=== PATIENT | female | born 1990 | race Caucasian/White ===

== ENCOUNTER 2019-05-14 04:22 | Inpatient (IN) | payer BC, SELFPAY ==
[2019-05-14] VITALS (91 sets, daily range): BP systolic 91–134; BP diastolic 42–117; PULSE 76–151; RESP 12–16; TEMP 36.4–37.1; O2SAT 96–100; BMI 23.5
--- NOTE | 2019-05-14 09:00 | WPDOBADMIT ---
Obstetrics - Admit Note Admission Note: record reviewed. Additions to the history and/or subsequent changes in the physical findings follow. 29 y/o at 38 5/7 weeks here withi contractiosn. GBS neg. AVSS NST reactive TOCO: contractions every 2-3 min ABD soft, nontender, gravid, vertex EXT nontender Cervix 5/80/-2. AROM with clear fluid. A: IUP at term with labor. P: Anticipate .
[2019-05-14] MEDS: LACTATED RINGERS 1,000 ML 125 ML IV CONT ×2 (09:31→10:11)
[2019-05-14 09:43] LABS: Basophils Absolute Auto 0.1 K/mm3 (0.0-0.1); Basophils Percent Auto 0.5 % (0.2-1.2); Eosinophils Percent Auto 0.2 % (0-4.4); Hematocrit 37.9 % (37.0-47.0); Hemoglobin 12.3 g/dL (12.0-15.0); Immature Granulocyte Absolute 0.18 K/mm3 (0.00-0.031); Immature Granulocyte Percent A 1.5 % (0-0.5); Lymphocytes Absolute Auto 1.85 K/mm3 (0.9-3.2); Lymphocytes Percent Auto 15.5 % (18.3-44.2); Mean Corpuscular HGB Conc 32.5 g/dl (32-36); Mean Corpuscular Hemoglobin 29.3 pg (26-34); Mean Corpuscular Volume 90.2 fl (80-100); Mean Platelet Volume 9.7 fl (7.4-10.4); Monocytes Absolute Auto 0.9 K/mm3 (0.1-0.6); Monocytes Percent Auto 7.5 % (2.6-8.5); Neutrophils Percent Auto 74.8 % (45.5-73.1); Platelet Count Result 178 k/mm3 (150-375); Red Cell Distribution Width 14.1 % (11.5-14.5)
--- NOTE | 2019-05-14 09:44 | LDADM ---
This patient, Gage Sandy, was admitted to Labor/Delivery/Recovery 107 on 05/14/19 at 04:22. Plans for labor, pain management and were discussed with patient. Patient/family oriented to hospital policies and general routines including ID bracelet, bed and alarms, visiting hours, pain management, procedures, bathroom and other care routines, personal items, smoking policy, room service/diet and guest tray routines, infant security routines, and visiting hours. Patient/Family are encouraged to report perceived risks to care and to ask questions if they do not understand what they are told or what they should do. See OBIX for further documentation.
--- NOTE | 2019-05-14 10:30 | WPDANESEPP ---
Anes - Eval Pre Procedure Procedure: labor epidural Date/Time: 05/14/19 10:30 Surgeon: nichole Pre Op Diagnosis: labor Patient Data Age: 29 Gender: F Height: 1.68 m Weight: 66 kg Last Vital Signs Pulse 87 05/14/19 10:15 BP 126/76 05/14/19 10:15 Pulse Ox 100 05/14/19 10:29 Allergies Allergy/AdvReac Type Severity Reaction Status Date / Time No Known Allergies Allergy Unverified 05/27/17 10:53 Home Medications Medication Instructions Recorded Confirmed Type PNV cmb#95-ferrous fumarate-FA 1 tablet PO DAILY 04/26/19 04/26/19 History [] Laboratory Tests 05/14/19 05/14/19 09:24 09:24 WBC 12.0 K/mm3 H K/mm3 (4.5-10.0) RBC 4.20 M/mm3 M/mm3 (4.2-5.4) Hgb 12.3 g/dL g/dL (12.0-15.0) Hct 37.9 % % (37.0-47.0) MCV 90.2 fl fl (80-100) MCH 29.3 pg pg (26-34) MCHC 32.5 g/dl g/dl (32-36) RDW 14.1 % % (11.5-14.5) Plt Count 178 k/mm3 k/mm3 (150-375) MPV 9.7 fl fl (7.4-10.4) Immature Gran % (Auto) 1.5 % H % (0-0.5) Neut % (Auto) 74.8 % H % (45.5-73.1) Lymph % (Auto) 15.5 % L % (18.3-44.2) [place] % (Auto) 7.5 % % (2.6-8.5) Eos % (Auto) 0.2 % % (0-4.4) Baso % (Auto) 0.5 % % (0.2-1.2) Lymph # (Auto) 1.85 K/mm3 K/mm3 (0.9-3.2) Barrow # (Auto) 0.9 K/mm3 H K/mm3 (0.1-0.6) Eos # (Auto) 0.0 K/mm3 K/mm3 (0-0.3) Baso # (Auto) 0.1 K/mm3 K/mm3 (0.0-0.1) Abs Immat Gran (auto) 0.18 K/mm3 H K/mm3 (0.00-0.031) Absolute Neuts (auto) 9.0 K/mm3 H K/mm3 (1.3-6.7) Absolute Nucleated RBC 0.0 K/mm3 K/mm3 (0.0-0.012) Nucleated RBC % 0.0 % % (0.0-0.2) RPR Pending Patient hx anesthesia problems: none Family hx anesthesia problems: none [facility] Family History Family History (Updated 04/26/19 @ 13:51 by Angeles Willis RN) Other No significant past medical history Social History Social History Smoking status: Never smoker Substance use: never Gender identity (if verbalized by the patient): Female Spiritual care concerns: No Exam Day of Procedure 05/14/19 10:30
[2019-05-14] MEDS: ONDANSETRON INJ 4 MG/2 ML VIAL IV PUSH (13:46)
--- NOTE | 2019-05-14 18:35 | PC.NURSE ---
Patient transferred to post room #281 via wheelchair. Support person present. Oriented to unit, room, information board, rooming in, admission packet and security measures. Patient verbalizes understanding.
--- NOTE | 2019-05-14 19:40 | P.PCNOB_ITS ---
OB - Delivery Note Procedure Delivery date: 05/14/19 Procedure: Delivery monitor: external FHT and external uterine Route of delivery: Laceration description: Perineal - 2nd Degree Delivery repair: vicryl (3-0) Specimen: Yes (Cord blood) Estimated blood loss (mL): 630 Anesthesia type: Epidural Disposition: PACU Complications: None Narrative: Kaonya-tdhfu-gziw-old 4 para 2011 at 38 5/7 weeks gestation who presented to the hospital with complaint of contractions. Labor was diagnosed. Amniotomy was performed with return of clear fluid. She received an epidural for pain control. Her labor progressed and her cervix dilated completely. She pushed with good effort and delivered the infant's head to the perineum, followed by the body. The nose and mouth were bulb suctioned. After a delay, the cord was clamped and cut. The infant was handed off the field. Cord blood was collected. The placenta delivered spontaneously and was grossly normal in appearance. The usual 3 vessel cord was noted. A second degree midline perineal laceration was sustained. This was reapproximated using 3 0 Vicryl in the usual layered fashion. Excellent hemostasis resulted as did excellent reapproximation of the normal anatomy. Needle and instrument counts were correct. The patient was taken to recovery room in stable condition. The went to the nursery in stable condition. I was present and scrubbed for the entire delivery. Jackson Baby Date of : 05/14/19 Time of : 13:34 Weeks of gestation at delivery: 38 Infant gender: Male Weight (pounds): 7 Weight (ounces): 7 presentation: vertex Placenta delivery description: Spontaneous and Normal Configuration cord vessel description: 3 Vessels score one minute: 8 score five minutes: 9
--- NOTE | 2019-05-14 19:43 | PM.DS ---
DS: Diagnosis Admitting Diagnosis Admitting Diagnosis: IUP at term labor Discharge Diagnosis (1) (normal spontaneous vaginal delivery): Code(s): O80 - Encounter for full-term uncomplicated delivery Status: Acute DS: Summary Time Spent with Patient Time attestation: Total time spent providing and/or coordinating discharge services: DS: Data Data Completed and Pending Labs on day of discharge: Labs from last 24 hours 05/14/19 05/14/19 05/14/19 09:24 09:24 09:24 WBC 12.0 H RBC 4.20 Hgb 12.3 Hct 37.9 MCV 90.2 MCH 29.3 MCHC 32.5 RDW 14.1 Plt Count 178 MPV 9.7 Immature Gran % (Auto) 1.5 H Neut % (Auto) 74.8 H Lymph % (Auto) 15.5 L Bracken % (Auto) 7.5 Eos % (Auto) 0.2 Baso % (Auto) 0.5 Lymph # (Auto) 1.85 [place]acken # (Auto) 0.9 H Eos # (Auto) 0.0 Baso # (Auto) 0.1 Abs Immat Gran (auto) 0.18 H Absolute Neuts (auto) 9.0 H Absolute Nucleated RBC 0.0 Nucleated RBC % 0.0 RPR Pending Blood Type A Positive Antibody Screen Negative Discharge Plan Discharge Attending physician on discharge: Zane Wetzel Discharging Clinician: Zane Wetzel Patient Disposition: Home, Self-Care Activity: pelvic rest Diet: regular Discharge Instructions: Call or return if temperature above 100.4? F, increased abdominal pain, increased vaginal bleeding or any new problems. Stand Alone Forms: General Discharge Information Follow-up/Referrals: Zane Wetzel MD [Physician] - (6 weeks) Discharge Medications: New ferrous sulfate 325 mg (65 mg iron) tablet 325 mg PO DAILY Qty: 30 RF: 0 No Action PNV cmb#95-ferrous fumarate-FA [] 28 mg iron- 800 mcg Tablet 1 tablet PO DAILY RF: 0 Date of admission: 05/14/19 04:22 Primary Care Provider: Floridalma,Nilam Admitting Provider: Zane Wetzel Attending physician on admission: Zane Wetzel
[2019-05-14] MEDS: IBUPROFEN 600 MG TABLET PO (21:04)
[2019-05-15] MEDS: IBUPROFEN 600 MG TABLET PO ×2 (04:57→11:07)
[2019-05-15 05:36] LABS: Hematocrit 27.4 % (37.0-47.0); Hemoglobin 8.7 g/dL (12.0-15.0)
[2019-05-15 07:58] LABS: Rapid Plasma Reagin Non-Reactive (NonReactive)
[2019-05-15] MEDS: MULTIVIT/MIN/PREN/FOL AC/IRON TABLET 1 TAB PO (08:23)
[2019-05-15] MEDS: DOCUSATE SODIUM 100 MG CAPSULE PO (08:23)
[2019-05-15] MEDS: POLYSACCHARIDE IRON COMPLEX 150 MG CAPSULE PO (08:23)
[2019-05-15 08:45] VITALS: BP 128/72; PULSE 101; RESP 16; TEMP 37.2; O2SAT 99
--- NOTE | 2019-05-15 13:34 | PM.OBPNVD ---
OB - PN: Subj Subjective Date/time seen: 05/15/19 13:34 Narrative: Pain OK. Would like circumcision for son. Wants to go home today. OB - PN: Obj Data Labs CBC & Chem 7: 05/15/19 05:16 Labs: Laboratory Results - last 24 hr 05/14/19 05/15/19 09:24 05:16 Hgb 8.7 L D Hct 27.4 L RPR Non-reactive OB - PN A/P Plan Comments: A: PPD#1, doing well. P: Reviewed circumcision. Home today. F/u 6 weeks. Exam Narrative: Exam Narrative: AVSS ABD soft, nontender, fundus firm EXT nontender
--- NOTE | 2019-05-15 14:19 | PC.NURSE ---
Patient was given the opportunity to view the discharge video Mother & Baby Care, The First Two Weeks and to ask questions. Patient declined viewing the video and has been given the mother/baby guide for home reference. 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
[2019-05-17 11:21] VITALS: BP 119/80; PULSE 93; RESP 16; TEMP 37
== END 2019-05-15 16:06 | disposition home or self-care (01) | DRG 807 ==
LOC: ANHLDR 16:21 → ANHOB2 17:40
PROVIDERS: Admitting Provider Obstetrics & Gynecology; PCP Physician Assistant; Visit Provider Obstetrics & Gynecology
DX: O70.1 Second degree perineal laceration during delivery (principal); Z37.0 Single live birth; Z3A.38 38 weeks gestation of pregnancy; Z23 Encounter for immunization
CPT/HCPCS: 36415; 85014; 85018; 85025; 86592; 86850; 86900; 86901; A9270; J2405; J2590; J2795; J7120

== ENCOUNTER → 2020-02-11 08:51 | Outpatient (REF) | payer BC, SELFPAY | LOC: ANHLAB 08:51 | PROVIDERS: PCP Physician Assistant; Visit Provider Nurse Practitioner | DX: D49.2 Neoplasm of unspecified behavior of bone, soft tissue, and skin (principal) | CPT/HCPCS: 88305 ==

== ENCOUNTER 2021-05-27 20:25 | Emergency (ER) | payer BC, SELFPAY ==
[2021-05-27 20:36] VITALS: BP 117/50; PULSE 95; RESP 16; TEMP 36.6; O2SAT 99
--- NOTE | 2021-05-27 20:51 | ED.NAVMDI ---
HPI - Nausea/Vomiting/Diarrhea General Chief complaint: Nausea/Vomiting/Diarrhea Stated complaint: N/V RUQ pain, 10wks preg Time Seen by Provider: 05/27/21 20:42 Source: patient Mode of arrival: ambulatory Limitations: no limitations History of Present Illness HPI Narrative: Pt is a 31 y/o female, , 10 weeks , presents to ED via POV with acute onset RUQ abdominal pain, nausea and vomiting, approximately 3 hours after eating [employer] for lunch. She denies associated fevers, chills, hematemesis, hematochezia, melena, diarrhea or constipation. She denies vaginal bleeding or discharge and she has no urinary symptoms. She retains her gallbladder MD elicited complaint: nausea and vomiting Associated nausea: Yes Associated abdominal pain: Yes Location of pain: RUQ Pain consistency: constant Severity: moderate Quality: cramping, sharp and constant Exacerbating factors: other (palpation) Relieving factors: none and other (she has taken Zofran 8 mg without relief) Context: other (entire family had a gastroenteritis two weeks ago, her symptoms resolved completely until today) Related Data Home Medications Medication Instructions Recorded Confirmed ondansetron 4 mg PO Q4-6H PRN 05/27/21 05/27/21 sertraline 50 mg PO DAILY 05/27/21 05/27/21 Allergies Allergy/AdvReac Type Severity Reaction Status Date / Time No Known Allergies Allergy Verified 05/27/21 20:39 Review of Systems Review of Systems: refer to HPI Gastrointestinal: Gastrointestinal: Reports as per HPI [facility] Family History Family History Other No significant past medical history Social History Social History Smoking status: Never smoker Substance use: never Gender identity (if verbalized by the patient): Female Spiritual care concerns: No Exam Const: General: cooperative, healthy appearing, alert, awake and Physically active Orientation/consciousness: oriented to person, oriented to place and oriented to time Limitations: no limitations HENMT: Head: normal to inspection Ears: hearing grossly normal bilaterally General nose exam: Normal external nose present Face and sinus: normal facial exam Mouth: Yes Normal oral and palatal mucosa present Eyes: General: appearance normal, both eyes and all related structures Visual Conway: normal visual conway by confrontation Alignment and Position: alignment normal Neck: Neck: normal visual inspection Chest: Chest palpation & inspection: normal inspection of the chest and normal palpation of entire chest wall Resp: Effort & Inspection: normal respiratory effort and able to speak in complete sentences Auscultation: clear to auscultation bilaterally Cardio: Jugular venous distension: no JVD Palpation: normal PMI Rate: regular rate Rhythm: regular rhythm Heart sounds: S1 normal heart sound present and S2 normal heart sound present Peripheral pulses: Peripheral pulses 2+ throughout GI: Inspection: normal to inspection (gravid appearance) GI Palp: Yes abdominal tenderness (RUQ, + Blanco's sign, no CVA TTP, no rebound, no palpable mass or HSM) Percussion: Yes normal to percussion Auscultation: normal bowel sounds Rectal Exam: deferred : General: Yes no CVA tenderness Skin: General skin exam: normal color Lesions: no lesions Rashes: no rashes Neuro: General: oriented to person, oriented to place, oriented to time and patient oriented x3 Cognition (Neuro): normal cognition Motor exam (neuro): 5/5 motor strength present throughout Sensory Exam: normal sensation Course Course Emergency Course: Pt's nausea has improved until just prior to discharge, nausea started to return. pain is persistent but improved since onset earlier today. A bedside US is completed by Dr Martino, as US is not available this time of night through the radiology department. No gall stones noted, gallbladde
[2021-05-27] MEDS: diphenhydrAMINE HCl INJ 50 MG/ML VIAL 25 MG IV PUSH (21:02)
[2021-05-27] MEDS: METOCLOPRAMIDE HCL INJ 10 MG/2 ML VIAL IV PUSH (21:02)
[2021-05-27] MEDS: LACTATED RINGERS 1,000 ML 1000 ML IV CONT (21:03)
[2021-05-27 21:09] LABS: Basophils Percent Auto 0.2 % (0.2-1.2); Hematocrit 42.5 % (37.0-47.0); Hemoglobin 14.7 g/dL (12.0-15.0); Immature Granulocyte Absolute 0.08 K/mm3 (0.00-0.031); Immature Granulocyte Percent A 0.4 % (0-0.5); Lymphocytes Absolute Auto 0.93 K/mm3 (0.9-3.2); Lymphocytes Percent Auto 5.2 % (18.3-44.2); Mean Corpuscular HGB Conc 34.6 g/dl (32-36); Mean Corpuscular Volume 92.6 fl (80-100); Mean Platelet Volume 9.6 fl (7.4-10.4); Monocytes Absolute Auto 0.9 K/mm3 (0.1-0.6); Monocytes Percent Auto 4.9 % (2.6-8.5); Neutrophils Absolute Auto 16.1 K/mm3 (1.3-6.7); Neutrophils Percent Auto 89.3 % (45.5-73.1); Platelet Count Result 219 k/mm3 (150-375); Red Blood Count 4.59 M/mm3 (4.2-5.4); Red Cell Distribution Width 13.5 % (11.5-14.5); White Blood Count 18.1 K/mm3 (4.5-10.0)
[2021-05-27 21:17] LABS: Add Urine Microscopic? YES; Appearance Urine Clear (Clear); Bacteria Urine Trace /hpf; Bilirubin Urine Negative (Negative); Blood Urine Negative (Negative); Color Urine Yellow (Yellow); Glucose Urine UA Negative (Negative); Ketones Urine 1+ mg/dL (Negative); Leukocyte Esterase Ur Negative LEU/UL (Negative); Mucus Urine Rare /lpf; Nitrate Urine Negative (Negative); Protein Urine Negative (Negative); RBC Urine 0-2 /hpf (0-2); Specific Grav Ur 1.018 (1.001-1.035); Squamous Epithelial Cell Urine Few /hpf (Few); Urobilinogen Urine Negative mg/dL (<2.0)
[2021-05-27 21:27] LABS: Alanine Aminotransferase 14 U/L (4-35); Albumin Level 4.2 g/dL (3.5-5.1); Alkaline Phosphatase 95 U/L (38-126); Anion Gap 9 mmol/L (8-16); Aspartate Amino Transferase 25 U/L (14-36); Bilirubin,Total 0.5 mg/dL (0.2-1.3); Blood Urea Nitrogen 12 mg/dL (7-17); Calcium 8.8 mg/dL (8.4-10.2); Carbon Dioxide 21 mmol/L (22-30); Chloride 106 mmol/L (98-107); Estimated CRCL calculation 144 ml/min; Estimated Glomerular Filt Rate > 60; Glucose 108 mg/dL (65-110); Lipase 98 U/L (23-300); Sodium 136 mmol/L (137-145)
[2021-05-27] MEDS: METOCLOPRAMIDE HCL 10 MG TABLET PO (23:14)
[2021-05-27 23:16] VITALS: BP 127/85; PULSE 95; RESP 20; O2SAT 98
== END 2021-05-27 23:17 | disposition home or self-care (01) ==
PROVIDERS: Emergency Provider Nurse Practitioner Family; PCP Physician Assistant
DX: O26.891 Other specified pregnancy related conditions, first trimester (principal); R10.11 Right upper quadrant pain; D72.829 Elevated white blood cell count, unspecified; O21.9 Vomiting of pregnancy, unspecified; Z3A.10 10 weeks gestation of pregnancy
CPT/HCPCS: 36415; 80053; 81001; 83690; 84702; 85025; 96374; 96375; 99284; A9270; J1200; J2765; J7120

== ENCOUNTER 2021-06-08 07:59 | Outpatient (CLI) | payer BC, SELFPAY ==
--- NOTE | ~2021-06-08 | US_ITS ---
EXAMINATION: US right upper quadrant DATE: 06/08/2021 08:22 INDICATION: Right upper quadrant abdominal pain. First trimester of . TECHNIQUE: Multiple grayscale and Doppler ultrasound images of the abdomen were obtained. COMPARISON: Ultrasound 12/13/2017 FINDINGS: The visualized portions of the head and body of the pancreas are normal. The liver is roselia l without focal lesion. There is normal flow in main portal vein. The gallbladder is normal in size. No gallstones or gallbladder wall thickening. There was no sonographic Blanco sign. The common duct i s normal and measures 3 mm. IMPRESSION: 1. Normal right upper quadrant ultrasound. Reviewed, dictated and finalized at location A. NG GUIDE
== END 2021-06-08 08:00 | disposition home or self-care (01) ==
LOC: ANHIMG 08:02
PROVIDERS: PCP Physician Assistant; Visit Provider Obstetrics & Gynecology
DX: R10.11 Right upper quadrant pain (principal); O26.891 Other specified pregnancy related conditions, first trimester
CPT/HCPCS: 76705

== ENCOUNTER 2022-11-27 17:27 | Emergency (ER) | payer BC, SELFPAY ==
[2022-11-27 17:30] VITALS: BP 131/89; PULSE 96; RESP 15; TEMP 36.8; O2SAT 100
--- NOTE | 2022-11-27 17:53 | ED.GENADULT ---
[facility] - General Adult General Chief complaint: Epistaxis Stated complaint: epistaxis Time Seen by Provider: 11/27/22 17:42 Source: patient Mode of arrival: ambulatory Limitations: no limitations History of Present Illness HPI narrative: This is a 32-year-old female who presents to the ED with chief complaint of epistaxis that began 30 minutes prior to arrival. She states it lasted for 30 minutes and she came to the ER for further evaluation. Denies any history of nosebleed problems. Denies any easy bleeding/bruising or bleeding problems in general. She states this seemed to happen spontaneously today. She does note that she has been getting over COVID over the last week. States that she feels she has had to spit it up. Denies any further complaint. During the interview patient states that the epistaxis seems to have completely resolved. Related Data Home Medications Medication Instructions Recorded Confirmed sertraline 50 mg tablet 50 mg PO DAILY 05/27/21 05/27/21 Allergies Allergy/AdvReac Type Severity Reaction Status Date / Time No Known Allergies Allergy Verified 11/16/22 15:34 Review of Systems Review of Systems: All systems as dictated in [facility] Past Medical History Medical History (Updated 11/27/22 @ 18:02 by Barron Johnson PA-C) Surgery, elective episiotomy repair Family History Family History (Updated 11/16/22 @ 15:37 by Rachel Moore MA) Other Diabetes mellitus Hypertension Social History Social History (Updated 11/16/22 @ 15:38 by Rachel Moore MA) Smoking status: Never smoker Alcohol intake: current Substance use: never Substance use type: does not use Living arrangements: with family Occupation/Education: occupation Gender identity (if verbalized by the patient): Female Sexual Orientation (if Verbalized by the Patient): Straight or Heterosexual Spiritual care concerns: No Exam Narrative: GENERAL: Well-appearing, well-nourished, and in no acute distress. HEAD: Normocephalic, atraumatic. EYES: PERRLA and EOMI. ENT: Scant amount of bright red blood noted in the posterior pharynx. I do not visualize any active bleeding in either nare. Also do not visualize the source of the previous bleed. Mucous membranes moist. Oropharynx without tonsillar hypertrophy exudate or other lesions. NECK: Supple. No adenopathy or masses. CHEST: No respiratory distress. Clear to auscultation. No wheezes rales or rhonchi HEART: Regular rate and rhythm. No murmur heard. Normal peripheral pulses. ABDOMEN: Soft, nontender, nondistended, normal active bowel sounds. MSK: Normal range of motion. No edema. SKIN: Warm, dry, no rash. NEURO: Alert and oriented x3. No focal deficits. PSYCH: Normal mood and affect. Course Vital Signs Vital signs: Vital Signs Temperature 98.3 F 11/27/22 17:30 Pulse Rate 96 11/27/22 17:30 Respiratory Rate 15 11/27/22 17:30 Blood Pressure 131/89 11/27/22 17:30 Pulse Oximetry 100 11/27/22 17:30 Oxygen Delivery Room Air 11/27/22 17:30 Temperature 98.3 F 11/27/22 17:30 Pulse Rate 96 11/27/22 17:30 Respiratory Rate 15 11/27/22 17:30 Blood Pressure 131/89 11/27/22 17:30 Pulse Oximetry 100 11/27/22 17:30 Oxygen Delivery Room Air 11/27/22 17:30 Medical Decision Making MDM Narrative Medical decision making narrative: This is a 32-year-old female who presents to the ED with chief complaint of epistaxis that started 30 minutes prior to arrival. Vitals are normal. Exam does not reveal any active bleeding or source of bleeding. She reports that the bleeding was in the right nare but it is completely resolved as I interview her. She initially used the nose clamp given by triage. She was observed in the department for an hour with no continued bleeding. Stable for discharge home. Bleeding was likely anterior. She has recent viral illness with sinusitis which may be contributing to her noseble
== END 2022-11-27 19:02 | disposition home or self-care (01) ==
PROVIDERS: Emergency Provider Physician Assistant; PCP Physician Assistant
DX: R04.0 Epistaxis (principal); Z79.899 Other long term (current) drug therapy
CPT/HCPCS: 99282

== ENCOUNTER 2023-08-04 03:44 | Day surgery (SDC) | payer OTHER, SELFPAY ==
[2023-07-26 14:42] VITALS: BMI 20.1
--- NOTE | 2023-07-26 14:45 | PC.NURSE ---
Report to the Outpatient Waiting Room, entrance under the green pavilion located off [facility], at time 1230 on date 08/04/23. Planned Procedure Time: 1430. Time changes happen often and if your time is changed the preop area will call you the afternoon before. - You and your visitor will be asked to self-screen and do not enter if you have any COVID symptoms. - A mask is optional within the hospital at this time. Patients may have clear liquids (water, carbonated beverages, clear teas, apple juice) until 3 hours prior to surgery with a maximum of 20 ounces. - No food from midnight until time of surgery Take the following medications with a SIP of water the morning of surgery: SERTRALINE DO NOT STOP ANY OF YOUR OTHER PRESCRIPTION MEDICATIONS PRIOR TO SURGERY ?EXCEPT THE FOLLOWING Medications to discontinue per physician: VITAMIN Date to take last dose: 07/31/23 Please no make-up, nail ecuadorean, hairspray, perfume, deodorant, or body powder the day of surgery. No jewelry (including any body piercings) or valuables the day of surgery, leave them at home. Please take a shower or bath the night before, or the morning of, surgery with an antibacterial soap. Wear comfortable, loose fitting clothing. - Jewelry must be removed prior to entering the operating room. Rings and piercings that are not removed may be cut off. - The hospital will not accept responsibility for valuables. - Please leave all valuables, including medications, at home the day of surgery. If you are going home after surgery, a licensed minibus driver must drive you home. - NO public transportation without another adult if you receive anesthesia. - We recommend that an adult stay with you for 24 hours following discharge. - We also recommend that you do not drive, make important decision, drink alcoholic beverages, or take any drugs that were not prescribed by your health care provider for at least 24 hours after your discharge time. Follow any additional instructions given to you from your surgeon. If you or anyone in your household have experienced Covid symptoms in the past week, please notify your surgeon or the nurse liaison at the phone number below for possible testing. Telephone instructions given to PT - DEREJE and asked if any additional questions and then verbalized understanding. Patient advised to call surgeon office or pre surgery nurse liaison [phone] if any additional questions.
[2023-08-04] VITALS (7 sets, daily range): BP systolic 101–127; BP diastolic 59–80; PULSE 71–90; RESP 12–20; TEMP 36.1–37.6; O2SAT 100
--- NOTE | 2023-08-04 12:51 | SUR.PREOP ---
DR MOORE NOTIFIED OF PATIENT LOW HEART RATE AND METOPROLOL TAKEN THIS AM
[2023-08-04] MEDS: LACTATED RINGERS 1,000 ML 30 ML IV CONT ×2 (13:17→17:16)
--- NOTE | 2023-08-04 13:29 | P.PNAN_ITS ---
Anes - Initial Pre Proc Eval Procedure: Operation Date: 08/04/23 14:30 Proposed Procedures p Bilateral Breast Augmentation - Craig Negrete MD Date/Time: 08/04/23 13:29 Surgeon: Craig Negrete MD Pre Op Diagnosis: Micromastia Patient Data Age: 33 Gender: F Height: 1.68 m Weight: 56.4 kg Last Vital Signs Temp 99.6 F 08/04/23 13:23 Pulse 90 08/04/23 13:23 Resp 18 08/04/23 13:23 BP 113/75 08/04/23 13:23 Pulse Ox 100 08/04/23 13:23 O2 Del Method Room Air 08/04/23 13:23 Allergies Allergy/AdvReac Type Severity Reaction Status Date / Time No Known Allergies Allergy Verified 08/04/23 12:41 Home Medications Medication Instructions Recorded Confirmed Type sertraline 50 mg tablet 50 mg PO DAILY 05/27/21 08/04/23 History multivitamin 1 tablet PO DAILY 07/26/23 08/04/23 History Patient hx anesthesia problems: post op nausea/vomiting Family hx anesthesia problems: none Results Review: All pre-operative results and documents have been reviewed as part of the pre- operative evaluation. COUNT INCLUDES THE [facility] Past Medical History Medical History (Updated 11/28/22 @ 00:01 by Lainey Sabillon) Surgery, elective episiotomy repair Family History Family History (Updated 11/16/22 @ 15:37 by Rachel Moore MA) Other Diabetes mellitus Hypertension Social History Social History (Updated 11/16/22 @ 15:38 by Rachel Moore MA) Smoking status: Never smoker Alcohol intake: current Alcohol use details: 2/MONTH Substance use: never Substance use type: does not use Living arrangements: with family Occupation/Education: occupation Gender identity (if verbalized by the patient): Female Sexual Orientation (if Verbalized by the Patient): Straight or Heterosexual Spiritual care concerns: No Anes - Eval Final PreProcedure Day of Procedure 08/04/23 13:29 Patient weight: normal Heart: regular rate and rhythm Lungs: clear to auscultation Airway: Mallampati scale class II Neurological: alert and oriented Last oral intake: >/= 8 hours ASA classification: II Emergent: no Anesthetic plan: proceed Anesthesia type and monitoring: general LMA and standard monitoring Results Review: All pre-operative results and documents have been reviewed as part of the pre- operative evaluation. Informed Consent: The patient's anesthetic plan and its attendant risks and benefits were discussed with the patient/family/POA. Questions were solicited and answers provided to the satisfaction of the patient/family/POA.
--- NOTE | 2023-08-04 14:21 | SUR.PREOP ---
PATIENT NOTIFIED OF TIME DELAY
--- NOTE | 2023-08-04 15:52 | WPDHPUPDATE1 ---
History and Physical Update Update Date/Time: 08/04/23 15:52 History and Physical has been reviewed, including an updated exam of the patient. There are NO changes in the patient's condition. Risks, benefits, and alternatives have been discussed and questions answered. Patient agrees to proceed with procedure.
--- NOTE | 2023-08-04 15:52 | W.PM.PROC2 ---
Procedure Note - Detailed Date of Procedure 08/04/23 Pre-op Diagnosis Micromastia Post-op Diagnosis Same Procedure Performed Bilateral augmentation mammaplasty Surgeon Craig Negrete MD Anesthesia General Findings Bilateral Kimberly Miranda SoftTouch 385cc Right - REF# [id number] SN [id number] Left - REF# [id number] SN [id number] Description of Procedure She is here today for bilateral breast augmentation. Previously and again today the risks, benefits, alternatives were discussed in extensive detail. I wanted her to be very realistic about the risks involved as well as expectations. We discussed aftercare and what to monitor for. Made sure answered all of her questions to her satisfaction today and consent was obtained. Marked in the preoperative holding area with their verification. The patient was taken to the operating room placed supine on the operating table. Anesthesia was provided by anesthesiology. A surgical time-out was taken. We cleansed the skin and 1% lidocaine and 0.25% Marcaine with epinephrine was used anesthetize as a field block. She was prepped and draped in a standard sterile fashion. Tegaderm nipple Zamudio were placed. A 15 blade used to make an incision along the inframammary fold. Dissection was continued at 45 degree angle until the chest wall as identified. I incised the pectoralis major along its inferior border and completely released the inferior border leaving the medial border intact. I created a subpectoral pocket in the appropriate dimensions based on our preoperative planning for the implant. I then copiously irrigated with saline solution and verified a strict hemostasis. Next the use a triple antibiotic and Betadine containing solution to irrigate the pocket. I washed my gloves with the triple antibiotic and Betadine solution. We washed the implant immediately upon opening it with this solution and only opened it when we needed it. I used implant funnel and no-touch technique. The implant was introduced into the pocket using the funnel. Having verified positioning of the implant this was closed using 2-0 PDS followed by 3-0 Monocryl in a running subcuticular 4-0 Monocryl followed by tissue glue. Fluffs and surgical bra were placed. Patient was awoke and taken to PACU without difficulty. All instrument sponge counts were correct at the end of the case. Estimated Blood Loss 10 Drains No Packing No Pathology None sent Complications No immediate complications Condition Stable Disposition PACU
[2023-08-04] MEDS: TRANEXAMIC ACID 1,000MG/ISO100 1,000 MG/100 ML BAG 200 MG IVPB (16:16)
[2023-08-04] MEDS: ceFAZolin 2 GM/D5W 50 ML 2 GM/50 ML BAG IVPB (16:28)
[2023-08-04] MEDS: NACL 0.9% IRRIG POUR BOTTLE 900 ML, GENTAMICIN SULFATE INJ 160 MG, ceFAZolin 2 GM, POVI... IRRIGATION (16:40)
[2023-08-04] MEDS: LIDO 1%/EPINEPHRINE 1:100,000 50 ML VIAL 30 ML INFILTRATE (16:49)
[2023-08-04] MEDS: BUPivacaine HCL 0.25% PF 30 ML VIAL INFILTRATE (16:50)
[2023-08-04] MEDS: fentaNYL CITRATE INJ (*CRX) 100 MCG/2 ML VIAL 25 MCG IV PUSH (17:28)
[2023-08-04] MEDS: ONDANSETRON INJ 4 MG/2 ML VIAL IV PUSH (17:36)
== END 2023-08-04 19:04 | disposition home or self-care (01) ==
PROVIDERS: PCP Physician Assistant; Visit Provider Surgery Plastic and Reconstructive Surgery
PROC: (CPT 19325; principal; 2023-08-04 14:30)
DX: Z41.1 Encounter for cosmetic surgery (principal); N64.82 Hypoplasia of breast
CPT/HCPCS: 19325; A9270; J0690; J1580; J2250; J2405; J3010; J7120

== ENCOUNTER 2024-08-19 01:20 | Emergency (ER) | payer SELFPAY ==
--- NOTE | ~2024-08-19 | XR_ITS ---
XR chest 1V portable Ordering provider: Alee Pizarro History: 34 years Female with . palpitations . Comparison: None. FINDINGS: MEDIASTINUM: The cardiac silhouette is not enlarged. LUNGS: No infiltrates, effusions or pneumothorax. OTHER: No free air under the diaphragm. IMPRESSION: No acute cardiopulmonary pathology. Reviewed, dictated and finalized at location A.
[2024-08-19 01:21] VITALS: BP 123/88; PULSE 96; RESP 16; TEMP 36.7; O2SAT 100
--- NOTE | 2024-08-19 01:21 | ECG_ITS ---
Test Date: 2024-08-19 01:30:58 Measurements Intervals Amoret Rate: 103 P: 67 ME: 150 QRS: 81 QRSD: 81 T: -68 QT: 343 QTc: 450 Interpretive Statements SINUS TACHYCARDIA NONSPECIFIC ST & T-WAVE ABNORMALITY No previous ECG available for comparison Electronically Signed On 08-19-2024 10:48:02 CDT by Renato Bruno M.D.
--- OUTSIDE RECORDS SUMMARY | 2024-08-19 01:22 | XMS_ITS | Clinical Summary ---
Author Organization [facility] Address [address] [place] [address] Phone Care Team Providers Care Photovoltaic Subcontractor Name Role Phone Unavailable Primary Care Provider Unavailabl e Allergies No known active allergies Medications VIT-IRON FUM-FOLIC AC ORAL Take by mouth. Active sertraline (ZOLOFT) 50 mg tablet Take 50 mg by mouth daily. Active Active Problems Problem Noted Date Diagnosed Date Varicose veins of both lower extremities 022 Resolved Problems Problem Noted Date Diagnosed Date Resolved Date Unstable lie 10/29/2021 Club foot, , affecting care of mother, antepartum 10/01/2021 01/30/2022 Placenta previa antepartum 08/10/2021 0 10/01/2021 care of multigravida, antepartum 07/13/2021 01/30/2022 Encounters Date Type Department Care Team Description 08/13/2024 External Device Data [facility] ABSTRACTION Provider, Abstract 08/13/2024 External Device Data [facility] ABSTRACTION Provider, Abstract 08/13/2024 External Device Data [facility] ABSTRACTION Provider, Abstract 08/06/2024 2:15 PM CDT Ancillary Procedure [place] [address] [place] [address] Maliha Hedrick PA Abdominal pain, right lower quadrant from Last 3 Months Immunizations Immunization Administration Dates Next Due (ADACEL/BOOSTRIX)(10 YR UP) TDAP VACCINE, 0.5ML, IM 10/29/2021 Family History Medical History Relation Name Comments Cancer Maternal Grandmother pancrea tic Breast Cancer Other maternal great grandma Colon Cancer Neg Hx Ovarian Cancer Neg Hx Preeclampsia Neg Hx Labor Neg Hx Relation Name Status Comments Maternal Grandmother Other Social History Tobacco Use Types Packs/Day Years Used Date Smoking Tobacco: Never Smokeless Tobacco: Never Alcohol Use Standard Drinks/Week Comments Not Currently 0 (1 standard drink = 0.6 oz pur e alcohol) Comments No Sex and Gender Information Value Date Recorded Sex Assigned at Not on file Legal Sex Female 1:41 PM CDT Gender Identity Not on file Sexual Orientation Not on file Last Filed Vital Signs Vital Sign Reading Time Taken Comments Blood Pressure 123/77 01/28/2022 1:52 PM CDT Pulse 67 12/07/2021 7:10 AM CDT Temperature 36.7 C (98 F) 12/07/2021 7:10 AM CDT Respiratory Rate 16 12/07/2021 7:10 AM CDT Oxygen Saturation - - Inhaled Oxygen Concentration - - Weight 66 kg (145 lb 6.4 oz) 01/28/2022 1:52 PM CDT Height 165.1 cm (5' 5 ) 01/28/2022 1:52 PM CDT Body Mass Index 24.2 01/28/2022 1:52 PM CDT Plan of Treatment Health Maintenance Due Date Last Done Comments HEPATITIS B VACCINES (1 of 3 - 19+ 3-dose series) 2010 HPV/Cotest (21-29) 01/02/2012 CERVICAL CANCER SCREENING 2021 HPV/Cotest (30-65) 2021 PAP SMEAR 2021 INFLUENZA VACCINE (#1) 2023 01/11/2021 COVID-19 Vaccine (2 - 2023- season) 2023 04/25/2020 DTAP/TDAP/TD VACCINES (3 - Td or Tdap) 10/30/2031 10/29/2021, 03/17/2015 HPV VACCINES Aged Out No longer eligi ble based on patient's age to complete this topic Procedures Procedure Name Priority Date/Time Associated Diagnosis Comments CT ABDOMEN PELVIS W CONTRAST Routine 08/06/2024 2:29 PM CDT Abdominal pain, right lower quadrant from Last 3 Months Results * CT ABDOMEN PELVIS W CONTRAST (08/06/2024 2:29 PM CDT) Anatomical Region Laterality Modality Abdomen Computed Tomogra phy 08/06/2024 2:21 PM CDT Impressions 08/06/2024 3:07 PM CDT FINDINGS AND IMPRESSION: LOWER CHEST: Lungs: Lungs bases are grossly clear. No pleural effusion. ABDOMEN: Hepatobiliary: No obvious hepatic lesions. Normal appearing gallbladder. Spleen: No lesions, no splenomegaly. Pancreas: No focal lesions. Adrenal glands: No focal lesions. Kidneys: There are numerous bilateral nonobstructive stones, the larger stones are located in the left kidney and measure 1 cm in diameter. There is no hydronephrosis, hydroureter or distal stones. Retroperitoneal and mesenteric space: The visible lymph nodes do not appear pathologically enlarged. Stomach and bowel: Nonobstructive pattern. Small fat-containing umbilical hernia noted. Aorta: No significant atherosclerotic disease or aneurysmal dilation. Narrowing of the left renal vein as it traverses between the SMA and the aorta which demonstrates a narrow. PELVIS: Appendix: Not visible. Colon and rectum: Not obstructed. No acute diverticulitis or obvious colitis. Genitourinary: Uterus and adnexa without obvious masses. No urinary bladder stones or abnormal wall thickening. Pelvic space: There are pelvic varicosities and left thigh superficial varicosities. BONES AND OTHER INCIDENTALS: No significant bony abnormalities. IMPRESSION: 1. Bilateral nonobstructive nephrolithiasis. 2. Narrow angle between the aorta and SMA could predispose to nutcracker syndrome. There are bilateral pelvic varices worse on the left and there are left thigh varicosities. 3. Small fat-containing umbilical hernia. Narrative 08/06/2024 3:07 PM CDT IMAGING STUDIES: CT ABDOMEN PELVIS W CONTRAST DATE: 08/06/2024 2:29 PM COMPARISON STUDIES: No previous available. CLINICAL HISTORY: Abdominal pain, right lower quadrant. . TECHNIQUE: Helical axial images were acquired from the lung bases to the symphysis pubis after the administration of intravenous contrast. Sagittal and coronal reconstructions were created. Radiation dose reduction technique was utilized. CONTRAST: IOPAMIDOL 61 % INTRAVENOUS SOLUTION (SINGLE USE VIAL) Given:100 mL Procedure Note Too Blanco MD - 08/06/2024 IMAGING STUDIES: CT ABDOMEN PELVIS W CONTRAST DATE: 08/06/2024 2:29 PM COMPARISON STUDIES: No previous available. CLINICAL HISTORY: Abdominal pain, right lower quadrant. . TECHNIQUE: Helical axial images were acquired from the lung bases to the symphysis pubis after the administration of intravenous contrast. Sagittal and coronal reconstructions were created. Radiation dose reduction technique was utilized. CONTRAST: IOPAMIDOL 61 % INTRAVENOUS SOLUTION (SINGLE USE VIAL) Given:100 mL FINDINGS AND IMPRESSION: LOWER CHEST: Lungs: Lungs bases are grossly clear. No pleural effusion. ABDOMEN: Hepatobiliary: No obvious hepatic lesions. Normal appearing gallbladder. Spleen: No lesions, no splenomegaly. Pancreas: No focal lesions. Adrenal glands: No focal lesions. Kidneys: There are numerous bilateral nonobstructive stones, the larger stones are located in the left kidney and measure 1 cm in diameter. There is no hydronephrosis, hydroureter or distal stones. Retroperitoneal and mesenteric space: The visible lymph nodes do not appear pathologically enlarged. Stomach and bowel: Nonobstructive pattern. Small fat-containing umbilical hernia noted. Aorta: No significant atherosclerotic disease or aneurysmal dilation. Narrowing of the left renal vein as it traverses between the SMA and the aorta which demonstrates a narrow. PELVIS: Appendix: Not visible. Colon and rectum: Not obstructed. No acute diverticulitis or obvious colitis. Genitourinary: Uterus and adnexa without obvious masses. No urinary bladder stones or abnormal wall thickening. Pelvic space: There are pelvic varicosities and left thigh superficial varicosities. BONES AND OTHER INCIDENTALS: No significant bony abnormalities. IMPRESSION: 1. Bilateral nonobstructive nephrolithiasis. 2. Narrow angle between the aorta and SMA could predispose to nutcracker syndrome. There are bilateral pelvic varices worse on the left and there are left thigh varicosities. 3. Small fat-containing umbilical hernia. Maliha NAVARRO CT ORDERABLES Final Result from Last 3 Months Insurance BS BLUE ACCESS/TRUE BLUE PPO Advance Directives For more information, please contact: [phone] * Full Code (Latest Code Status on File) Date Activated Date Inactivated Comments 12/06/2021 9:18 AM 12/07/2021 2:44 PM * Full Code Date Activated Date Inactivated Comments 12/06/2021 5:22 AM 12/06/2021 9:18 AM
--- OUTSIDE RECORDS SUMMARY | 2024-08-19 01:22 | XMS_ITS | CONTINUITY OF CARE DOCUMENT ---
Author Name lico barfield Address Unknown Organization [facility] Address [address] [place] [address] Phone [phone] Care Team Providers Care Cottage Attendant Name Role Phone Matias GERBER, Joshua Unavailable [phone] YASH MAY Unavailable [phone] YASH MAY Unavailable PROBLEMS Condition Status Date Provider Notes Venous hypertension - BLE inflammation active Joshua Salcedo MD ENCOUNTERS Date Type Provider Location Encounter Diag nosis - In-person encounter Office Visit Joshua Salcedo MD [facility] - In-person encounter Office Visit [facility] - In-person encounter Office Visit [facility] Venous hypertension - BLE inflammation VITAL SIGNS Date Observation Value Provider Body Mass Index (Ratio) 19.57 kg/m2 jeanette Salcedo MD pulse rate 86 /min Khadra Flores blood pressure, diastolic 80 mm[Hg] Br ittany Block blood pressure, systolic 122 mm[Hg] Tanya ttaneris Block oxygen saturation, oximetry 98 % Khadra Block weight E&M 114 [lb_av] Khadra Block respiratory rate E&M 16 /min Brittan y Block height E&M 64 [in_i] Khadra Block Body Mass Index (Ratio) 19.22 kg/m2 Kim Post RN blood pressure, cuff size regular Cr ruth Herrera blood pressure, diastolic 80 mm[Hg] Cr ruth Herrera blood pressure, systolic 110 mm[Hg] Cry stal Javier oxygen saturation, oximetry 99 % Quin Herrera respiratory rate E&M 17 /min Quin Herrera pulse rate 75 /min Quin becerra weight E&M 112 [lb_av] Quin Carrasco s height E&M 64 [in_i] Quin becerra Body Mass Index (Ratio) 18.88 kg/m2 Mell Salcedo MD blood pressure, cuff size small Rh anish Padilla blood pressure, diastolic 60 mm[Hg] Rh anish Padilla blood pressure, systolic 100 mm[Hg] Rho sherrell Padilla oxygen saturation, oximetry 98 % Shannon Padilla respiratory rate E&M 18 /min Shannon Padilla pulse rate 80 /min Shannon Padilla blood pressure, resting No Rhon viviana Padilla weight E&M 110 [lb_av] Shannon Padilla height E&M 64 [in_i] Shannon Padilla ALLERGIES No Known Drug Allergies HISTORY OF MEDICATION USE Medication Status Instructions Dates Provider Indications Com ments HYDROCODONE-DORIS TAMINOPHEN 5-325 MG ORAL TABLET completed )ne tab by mouth prior to procedure - Khadra Flores DIAZEPAM 2 MG ORAL TABLET completed One tab by mouth prior to procedure - Khadra Flores SOCIAL HISTORY Date Observation Value Provider smoking status Never smoker Khadra corral Underweight no Liyah andersen RN social history reviewed E&M revi ewed - no changes required Joshua Salcedo MD smoking status Never smoker Quin Be ams Underweight yes Joshua Salcedo MD social history E&M Patient has n ever smoked. A lcohol Use - no Smoking History: P atient has never smoked. 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 Also some in right posterior thigh. Was able to get through her third prenancy with panty hose style compression but hurts constanly and is sore and achy all day despite compression. N o edema, dvt and wears compression stockings daily. willredo venoud dopplers and plan varithena if insurance approves t his ethel be her best choice for chemical ablaiton of her varicose vein Joshua Salcedo MD Cardiology:left ante rolateral thigh varicosity is symptomatic r ight posterior thigh to posterior knee varicosity h as symptoms despite conservative measures venous u/s showed bilateral GSV, bilateral LSV reflux h as failed conservative measures and will recommend EVLT left GSV, then Varithena of left thigh tributary. . She is unsure if she wants to proceed so will think about it and let me know. Liyah Post RN Cardiology -ltr done : evaluation of varicose veins both legs- got worse after her second . Located more left upper thigh and laeral thigh. Also some in right medial thigh. Hurt with her second and wishes to get again and is concerned about the pain she has at this area with the second . N o edema, dvt and has wears compression stockings daily. will check venous reflux study Joshua Salcedo MD Date Name Venous Doppler Bilat eral LE - Reflux Varithena EVLT Venous Doppler Bilat eral LE - Reflux HISTORY OF PROCEDURES Procedure Date Procedure Name Provider Procedure Notes S tatus NO Salcedo MD completed NO Salcedo MD completed
--- OUTSIDE RECORDS SUMMARY | 2024-08-19 01:22 | XMS_ITS | Clinical Summary ---
Author Organization [facility] Address [address] [place] [address] Care Team Providers Care Patch Sander Name Role Phone Daniel Matias MD Primary Care Provider [phone] Source Comments [facility],non-owned Affiliates and Associated Physician Practices is amultiple site organization consisting of ambulatory clinics and hospital sitesin [place], [place], [place] and [place]. This disclosure is being madepursuant to the Care Everywhere program and may not contain all information available regarding this patient. Last updated 17.[facility] Allergies No known active allergies Medications * Be aware that medications may not be up to date on this document. Alwaysverify current medications with the patient. Vit-Fe Fumarate-FA ( VITAMIN) 28-0.8 MG tablet Take 1 Tab by mouth once daily Active Immunizations Immunization Administration Dates Next Due Covid TripShake primary monovalent 12+ yr 0.3mL Pur ple cap 04/25/2020 INFLUENZA VACCINE 01/31/2015 TDAP (7yrs+) 03/17/2015 Family History Medical History Relation Name Comments Heart Disease Maternal Grandfather Kidney Disease Maternal Grandfather Cancer - Colon Neg Hx Colon polyps Neg Hx Relation Name Status Comments Maternal Grandfather Social History Tobacco Use Types Packs/Day Years Used Date Smoking Tobacco: Never Alcohol Use Standard Drinks/Week Comments No 0 (1 standard drink = 0.6 oz pur e alcohol) Comments No Sex and Gender Information Value Date Recorded Sex Assigned at Not on file Legal Sex Female 5:36 AM COMMUNICATIONS TECHNOLOGIST Gender Identity Not on file Sexual Orientation Not on file Occupation Industry Job Start Date Job End Date employed Not on file Not on file Not on file Last Filed Vital Signs Vital Sign Reading Time Taken Comments Blood Pressure 102/60 04/18/2016 11:09 AM COMMUNICATIONS TECHNOLOGIST Pulse 88 04/25/2015 8:05 AM COMMUNICATIONS TECHNOLOGIST Temperature 36.9 C (98.4 F) 04/25/2015 8:05 AM COMMUNICATIONS TECHNOLOGIST Respiratory Rate 18 04/25/2015 8:05 AM COMMUNICATIONS TECHNOLOGIST Oxygen Saturation 100% 04/23/2015 8:15 PM COMMUNICATIONS TECHNOLOGIST Inhaled Oxygen Concentration - - Weight 47.2 kg (104 lb) 04/18/2016 11:09 AM COMMUNICATIONS TECHNOLOGIST Height 162.6 cm (5' 4 ) 04/18/2016 11:09 AM COMMUNICATIONS TECHNOLOGIST Body Mass Index 17.85 04/18/2016 11:09 AM COMMUNICATIONS TECHNOLOGIST Plan of Treatment Health Maintenance Due Date Last Done Comments HIV SCREENING 2006 HEPATITIS C SCREENING 12/27/2008 HEPATITIS B VACCINE (1 of 3 - 19+ 3-dose series) 2010 COVID-19 VACCINE (2 - 2023-2 5 season) 2023 04/25/2020 DEPRESSION SCREENING 04/03/2024 INFLUENZA VACCINE (Season Ended) 2024 02/01/20 15 DTAP/TDAP/TD VACCINES (2 - T d or Tdap) 03/17/2025 03/17/2015 ZOSTER VACCINE (1 of 2) 2041 HIB VACCINE Aged Out No longer eligi ble based on patient's age to complete this topic HPV VACCINE Aged Out No longer eligi ble based on patient's age to complete this topic MENINGOCOCCAL (Group B) VACC INE SHARED DECISION-MAKING Aged Out No longer eligibl e based on patient's age to complete this topic MENINGOCOCCAL GROUPS A/C/Y/W VACCINE Aged Out No longer eligible b ased on patient's age to complete this topic PNEUMOCOCCAL VACCINE Aged Out No long er eligible based on patient's age to complete this topic Insurance MEDICA [facility] Advance Directives * Full Code (Latest Code Status on File) Date Activated Date Inactivated Comments 04/23/2015 6:12 AM 04/25/2015 2:31 PM Care Teams Patch Sander Relationship Specialty Start Date End Date Daniel Matias MD [address] [place] [address] PCP - General 07/13/17
--- OUTSIDE RECORDS SUMMARY | 2024-08-19 01:22 | XMS_ITS | Data Portability ---
Author Organization YESSI KARINADayanna Bowen Address [address] [facility] [place] [address] Assessment No assessment recorded. Plan of Treatment Reminders Order Date Submit Date Provider Last Modified By Organization Details Last Modified Time Details Appointments None recorded. Lab TSH + free T4, serum 2023 024 [facility], [address], [address], [place], [address], 4 09:58:54 lipid panel, serum 2023 024 [facility], 2022 Ivana De La Cruz, [address], [place], [address], 4 09:58:45 CBC w/ auto diff 2023 024 [facility], 2022 Ivana De La Cruz, [address], [place], [address], 4 09:58:54 CMP, serum or plasma 2023 024 [facility], 2022 Ivana De La Cruz, [address], [place], [address], 4 09:58:54 HbA1c (hemoglobi n A1c), blood 2023 024 [facility], 2022 Ivana De La Cruz, [address], [place], [address], 4 09:58:54 Referral None recorded. Procedures None recorded. Surgeries None recorded. Imaging None recorded. Medication Orders sertraline 50 mg tablet 2023 024 [id number], [address], [place], [place], [id number], 5 11:07:10 Patient TargetsNo targets recorded. Patient InstructionsNo instructions recorded. Reason for Referral None Reported. Results Created Date Observation Date Name Description Value Unit Range Abnormal Flag Note LastModifiedBy Organization Detail LastModifiedTime 07/19/19 24 07/20/2023 LIPID PANEL W/ CHOL/ HDL RATIO cholesterol, total 200 mg/dL 100-19 9 above high normal Not Available [facility] ([facility]) [address] [place], [address], 07/20/2023 06:14:53 07/19/19 24 07/20/2023 LIPID PANEL W/ CHOL/ HDL RATIO triglyceride s 112 mg/dL 0-149 Not Available [facility] ([facility]) [address] [place], [address], 07/20/2023 06:14:53 07/19/19 24 07/20/2023 LIPID PANEL W/ CHOL/ HDL RATIO HDL cholesterol 54 mg/dL >39 Not Available [facility] ([facility]) [address] [place], [address], 07/20/2023 06:14:53 07/19/19 24 07/20/2023 LIPID PANEL W/ CHOL/ HDL RATIO VLDL cholesterol tianna 20 mg/dL 5-40 Not Available [facility] ([facility]) [address] [place], [address], 07/20/2023 06:14:53 07/19/19 24 07/20/2023 LIPID PANEL W/ CHOL/ HDL RATIO LDL chol calc ([facility]) 126 mg/dL 0-99 above high normal Not Available [facility] ([facility]) [address] [place], [address], 07/20/2023 06:14:53 07/19/19 24 07/20/2023 LIPID PANEL W/ CHOL/ HDL RATIO T. chol/HDL ratio 3.7 ratio 0.0-4. 4 T. Chol/ HDL Ratio Men Women 1/2 Avg.R isk 3.4 3.3 Avg.R isk 5.0 4.4 2X Avg.R isk 9.6 7.1 3X Avg.R isk 23.4 11.0 Not Available [facility] ([facility]) [address] [place], [address], 07/20/2023 06:14:53 07/19/19 24 07/20/2023 TSH+F REE T4 TSH 1.720 uIU/m L 0.450- 4.500 Not Available [facility] ([facility]) [address] [place], [address], 07/20/2023 06:14:54 07/19/19 24 07/20/2023 TSH+F REE T4 T4,free(dire ct) 0.99 NG/dL 0.82-1 .77 Not Available [facility] ([facility]) [address] [place], [address], 07/20/2023 06:14:54 07/19/19 24 07/20/2023 COMP. METAB OLIC PANEL (14) glucose 88 mg/dL 70-99 Not Available [facility] ([facility]) [address] [place], [address], 07/20/2023 06:14:54 07/19/19 24 07/20/2023 COMP. METAB OLIC PANEL (14) BUN 11 mg/dL 6-20 Not Available [facility] ([facility]) [address] [place], [address], 07/20/2023 06:14:54 07/19/19 24 07/20/2023 COMP. METAB OLIC PANEL (14) creatinine 0.78 mg/dL 0.57-1 .00 Not Available [facility] ([facility]) [address], [place], [address], 07/20/2023 06:14:54 07/19/19 24 07/20/2023 COMP. METAB OLIC PANEL (14) eGFR 103 mL/mi n/1.7 3 >59 Not Available [facility] ([facility]) [address], [place], [address], 07/20/2023 06:14:54 07/19/19 24 07/20/2023 COMP. METAB OLIC PANEL (14) BUN/creatini ne ratio 14 9-23 Not Available [facility] ([facility]) [address], [place], [address], 07/20/2023 06:14:54 07/19/19 24 07/20/2023 COMP. METAB OLIC PANEL (14) sodium 141 mmol/ L 134-14 4 Not Available [facility] ([place] [facility]) [address], [place], [address], 07/20/2023 06:14:54 07/19/19 24 07/20/2023 COMP. METAB OLIC PANEL (14) potassium 4.3 mmol/ L 3.5-5. 2 Not Available [facility] ([place] [facility]) [address] [place], [address], 07/20/2023 06:14:54 07/19/19 24 07/20/2023 COMP. METAB OLIC PANEL (14) chloride 105 mmol/ L 96-106 Not Available [facility] ([place] [facility]) [address] [facility] [place], [address], 07/20/2023 06:14:54 07/19/19 24 07/20/2023 COMP. METAB OLIC PANEL (14) carbon dioxide, total 25 mmol/ L 20-29 Not Available [facility] ([place] [facility]) [address] [facility] [place], [address], 07/20/2023 06:14:54 07/19/19 24 07/20/2023 COMP. METAB OLIC PANEL (14) calcium 9.6 mg/dL 8.7-10 .2 Not Available [facility] ([facility]) [address] [facility], [place], [address], 07/20/2023 06:14:54 07/19/19 24 07/20/2023 COMP. METAB OLIC PANEL (14) protein, total 6.9 g/dL 6.0-8. 5 Not Available [facility] ([facility]) [address] [facility], [place], [address], 07/20/2023 06:14:54 07/19/19 24 07/20/2023 COMP. METAB OLIC PANEL (14) albumin 4.5 g/dL 3.9-4. 9 Not Available [facility] ([facility]) [address] [facility], [place], [address], 07/20/2023 06:14:54 07/19/19 24 07/20/2023 COMP. METAB OLIC PANEL (14) globulin, total 2.4 g/dL 1.5-4. 5 Not Available [facility] ([facility]) [address] [facility], [place], [address], 07/20/2023 06:14:54 07/19/19 24 07/20/2023 COMP. METAB OLIC PANEL (14) A/G ratio 1.9 1.2-2. 2 Not Available [facility] ([facility]) [address] [facility], [place], [address], 07/20/2023 06:14:54 07/19/19 24 07/20/2023 COMP. METAB OLIC PANEL (14) bilirubin, total 0.5 mg/dL 0.0-1. 2 Not Available [facility] ([facility]) [address] [facility], [place], [address], 07/20/2023 06:14:54 07/19/19 24 07/20/2023 COMP. METAB OLIC PANEL (14) alkaline phosphatase 124 IU/L 44-121 above high normal Not Available [facility] ([facility]) [address] [place], [address], 07/20/2023 06:14:54 07/19/19 24 07/20/2023 COMP. METAB OLIC PANEL (14) AST (SGOT) 14 IU/L 0-40 Not Available [facility] ([facility]) [address] [place], [address], 07/20/2023 06:14:54 07/19/19 24 07/20/2023 COMP. METAB OLIC PANEL (14) ALT (SGPT) 12 IU/L 0-32 Not Available [facility] ([facility]) [address] [place], [address], 07/20/2023 06:14:54 07/19/19 24 07/19/2023 AMBOSMIN ABBRE V CMP14 DEFAU LT ambosmin abbrev CMP14 default Commen t A hand- writt en panel /prof opal was recei tiff from your offic e. In accor dance with the [facility] Michelle uous Test Code Polic y dated October 2002, we have compl eted your order by using the close st curre ntly or forme rly recog nized AMA panel . We have assig bertha Compr ehens brandyn Metab olic Panel (14), Test Code #[address]. If this is not the testi ng you wishe d to recei ve on this speci men, pleas e conta ct the [facility] Clien t Inqui ry/Te chnic al Servi rigo Depar tment to andre fy the test order . We appre ciate your busin ess. Not Available [facility] ([facility]) [address] [place], [address], 07/20/2023 06:14:54 07/19/19 24 07/20/2023 HEMOG LOBIN A1C hemoglobin A1C 5.5 % 4.8-5. 6 Predi abete s: 5.7 - 6.4 Diabe pamela: >6.4 Glyce marisel contr ol for adult s with diabe pamela: <7.0 Not Available [facility] ([facility]) [address] [place], [address], 07/20/2023 06:14:55 07/19/1907/20/2023 CBC WITH DIFFE RENTI AL/PL ATELE T WBC 6.1 x10e3 /uL 3.4-10 .8 Not Available [facility] ([facility]) [address] [place], [address], 07/20/2023 06:14:55 07/19/19 24 07/20/2023 CBC WITH DIFFE RENTI AL/PL ATELE T RBC 4.55 x10e6 /uL 3.77-5 .28 Not Available [facility] ([facility]) [address] [facility] [place], [place], [address], 07/20/2023 06:14:55 07/19/19 24 07/20/2023 CBC WITH DIFFE RENTI AL/PL ATELE T hemoglobin 13.7 g/dL 11.1-1 5.9 Not Available [facility] ([facility]) [address] [place], [address], 07/20/2023 06:14:55 07/19/19 24 07/20/2023 CBC WITH DIFFE RENTI AL/PL ATELE T hematocrit 41.5 % 34.0-4 6.6 Not Available [facility] ([facility]) [address] [place], [address], 07/20/2023 06:14:55 07/19/19 24 07/20/2023 CBC WITH DIFFE RENTI AL/PL ATELE T MCV 91 fL 79-97 Not Available [facility] ([facility]) [address] [place], [address], 07/20/2023 06:14:55 07/19/19 24 07/20/2023 CBC WITH DIFFE RENTI AL/PL ATELE T MCH 30.1 pg 26.6-3 3.0 Not Available [facility] ([facility]) [address] [facility] [place], [place], [address], 07/20/2023 06:14:55 07/19/19 24 07/20/2023 CBC WITH DIFFE RENTI AL/PL ATELE T MCHC 33.0 g/dL 31.5-3 5.7 Not Available [facility] ([facility]) [address] [facility], [place], [address], 07/20/2023 06:14:55 07/19/19 24 07/20/2023 CBC WITH DIFFE RENTI AL/PL ATELE T RDW 12.9 % 11.7-1 5.4 Not Available [facility] ([facility]) [address] [facility], [place], [address], 07/20/2023 06:14:55 07/19/19 24 07/20/2023 CBC WITH DIFFE RENTI AL/PL ATELE T platelets 236 x10e3 /uL 150-45 0 Not Available [facility] ([facility]) [address] [facility], [place], [address], 07/20/2023 06:14:55 07/19/19 24 07/20/2023 CBC WITH DIFFE RENTI AL/PL ATELE T neutrophils 58 % notest ab. Not Available [facility] ([facility]) [address] [facility] [place], [place], [address], 07/20/2023 06:14:55 07/19/19 24 07/20/2023 CBC WITH DIFFE RENTI AL/PL ATELE T lymphs 30 % notest ab. Not Available [facility] ([facility]) [address] [place], [address], 07/20/2023 06:14:55 07/19/19 24 07/20/2023 CBC WITH DIFFE RENTI AL/PL ATELE T monocytes 10 % notest ab. Not Available [facility] ([facility]) [address] [facility] [place], [place], [address], 07/20/2023 06:14:55 07/19/19 24 07/20/2023 CBC WITH DIFFE RENTI AL/PL ATELE T eos 1 % notest ab. Not Available [facility] ([facility]) [address] [facility] [place], [place], [address], 07/20/2023 06:14:55 07/19/19 24 07/20/2023 CBC WITH DIFFE RENTI AL/PL ATELE T basos 1 % notest ab. Not Available [facility] ([facility]) [address] [place], [address], 07/20/2023 06:14:55 07/19/19 24 07/20/2023 CBC WITH DIFFE RENTI AL/PL ATELE T neutrophils (absolute) 3.6 x10e3 /uL 1.4-7. 0 Not Available [facility] ([facility]) [address] [place], [address], 07/20/2023 06:14:55 07/19/19 24 07/20/2023 CBC WITH DIFFE RENTI AL/PL ATELE T lymphs (absolute) 1.8 x10e3 /uL 0.7-3. 1 Not Available [facility] ([facility]) [address] [place], [address], 07/20/2023 06:14:55 07/19/19 24 07/20/2023 CBC WITH DIFFE RENTI AL/PL ATELE T monocytes(ab solute) 0.6 x10e3 /uL 0.1-0. 9 Not Available [facility] ([facility]) [address] [place], [address], 07/20/2023 06:14:55 07/19/19 24 07/20/2023 CBC WITH DIFFE RENTI AL/PL ATELE T eos (absolute) 0.1 x10e3 /uL 0.0-0. 4 Not Available [facility] ([facility]) [address] [facility], [place], [address], 07/20/2023 06:14:55 07/19/19 24 07/20/2023 CBC WITH DIFFE RENTI AL/PL ATELE T baso (absolute) 0.0 x10e3 /uL 0.0-0. 2 Not Available [facility] ([facility]) [address] [facility] [place], [place], [address], 07/20/2023 06:14:55 07/19/19 24 07/20/2023 CBC WITH DIFFE RENTI AL/PL ATELE T immature granulocytes 0 % notest ab. Not Available [facility] ([facility]) [address] [facility], [place], [address], 07/20/2023 06:14:55 07/19/19 24 07/20/2023 CBC WITH DIFFE RENTI AL/PL ATELE T immature grans (abs) 0.0 x10e3 /uL 0.0-0. 1 Not Available [facility] ([facility]) [address] [facility] [place], [place], [address], 07/20/2023 06:14:55 08/07/19 25 08/06/2024 CT, abdom en + pelvi s, w/ contr ast No observ ation record ed. [facility] [address], [place], [address], 08/08/2024 18:26:29 Result Notes None recorded. Procedures Surgical History Date Name Laterality Status Provider Name and Address Organization Details Recorded Time 08/04/19 augmentation mammoplasty completed Elly Heredia [place] - [facility] 08/18/2023 12:11:05 Imaging Results Imaging Date Name Status LastModified by Organiz ation Details LastModified Time 08/06/2024 CT, abdomen + pelvis, w/ contrast completed [facility] [address], [place], [address], 08/08/2024 18:26:29 Procedure Notes None recorded. Medical Equipment None Reported. Allergies No known drug allergies Medications Name Sig Start Date Stop Date Status Note LastModified by Organization Details LastModified Time carisoprodo l 350 mg tablet TAKE 1 TABLET BY MOUTH EVERY 8 HOURS NEEDED FOR PAIN/MUSC LE SPASM 07/22 completed Not Available Not Available Not Available azithromyci n 250 mg tablet TAKE 2 TABLETS BY MOUTH ON DAY 1, AND THEN TAKE 1 TABLET BY MOUTH ONCE A DAY ON DAY 2 THROUGH DAY 5 07/22 completed Not Available Not Available Not Available ondansetron HCl 4 mg tablet TAKE 1 TABLET BY MOUTH EVERY 6 HOURS NEEDED FOR NAUSEA 07/22 completed Not Available Not Available Not Available tramadol 50 mg tablet TAKE 1 TABLET BY MOUTH EVERY 6 HOURS NEEDED FOR PAIN 07/22 completed Not Available Not Available Not Available montelukast 10 mg tablet TAKE 1 TABLET BY MOUTH ONCE DAILY 07/22 completed Not Available Not Available Not Available methylpredn isolone 4 mg tablets in a dose pack TAKE BY MOUTH DIRECTED ON INSIDE OF PACKAGE 07/22 completed Not Available Not Available Not Available sertraline 50 mg tablet TAKE 1 TABLET BY MOUTH ONCE DAILY 07/22 completed Not Available Not Available Not Available amoxicillin 875 mg-potassiu m clavulanate 125 mg tablet TAKE 1 TABLET BY MOUTH EVERY 12 HOURS 07/22 completed Not Available Not Available Not Available Vitals Date Recorded Body height Body mass index (BMI) Body weight Respiratory rate Oxygen saturation Oxygen saturation in Arterial blood by Pulse oximetry Heart rate Systolic blood pressure Diastolic blood pressure Provider Name and Address Organization Details Last Updated DateTime 4 168.28 cm 20.3 kg/m2 21172.2 3 g 18 /min 98 % 98 % 102 /min 122 mm[Hg] 82 mm[Hg] Racquel Membreno [place] - [facility] 4 10:15:37 Date Recorded Systolic blood pressure Diastolic blood pressure Provider Name and Address Organization Details Last Updated DateTime 07/05/2023 110 mm[Hg] 80 mm[Hg] RAMON Mendoza Attn: Accounting,[address] [facility], [place], [address], [facility] 07/05/2023 10:40:39 Date Recorded Body weight Body mass index (BMI) Body height Respiratory rate Oxygen saturation Oxygen saturation in Arterial blood by Pulse oximetry Heart rate Systolic blood pressure Diastolic blood pressure Provider Name and Address Organization Details Last Updated DateTime 5 18809.9 g 18.9 kg/m2 168.28 cm 18 /min 100 % 100 % 88 /min 122 mm[Hg] 80 mm[Hg] Racquel Membreno MA [facility] 5 11:10:15 Social History Question Answer Notes LastModified by Organizat ion Details LastModified Time Tobacco Smoking Status Never Smoker Racquel Membreno [place] null, [facility] 07/05/2023 10:12:51 Do You Have An Advance Directive? No Information not available 07/22/2024 Are You Blind Or Do You Have Difficulty Seeing? No CONTACTS, GLASSES Information not available 07/05/2023 What Is Your Level Of Caffeine Consumption? Occasional Information not available 07/05/2023 In The 14 Days Before Symptom Onset, Have You Had Close Contact With A Laboratory-confir med COVID-19 While That Case Was Ill? No Information not available 07/05/2023 In The 14 Days Before Symptom Onset, Have You Had Close Contact With A Person Who Is Under Investigation For COVID-19 While That Person Was Ill? No Information not available 07/05/2023 Have You Been To An Area Known To Be High Risk For COVID-19? No Information not available 07/05/2023 Are You Deaf Or Do You Have Serious Difficulty Hearing? No Information not available 07/05/2023 What Type Of Diet Are You Following? REGULAR Information not available 07/05/2023 Are There Any Guns Present In Your Home? No Information not available 07/05/2023 What Was The Date Of Your Most Recent Tobacco Screening? 07/05/2023 Information not available 07/05/2023 Do You Use Your Seat Belt Or Car Seat Routinely? Yes Information not available 07/05/2023 Do You Have Smoke And Carbon Monoxide Detectors In Your Home? Yes Information not available 07/05/2023 Do You Use Sunscreen Routinely? Yes Information not available 07/05/2023 Has Tobacco Cessation Counseling Been Provided? No Information not available 07/05/2023 Sex: Female Functional Status Question Answer Note LastModified by Organizat ion Details LastModified Time Do you use any illicit or recreational drugs? No Information not available 07/05/2023 Do you or have you ever used any other forms of tobacco or nicotine? No Information not available 07/05/2023 What is your level of alcohol consumption? Occasional Information not available 07/05/2023 Are you able to care for yourself? Yes Information n ot available 07/05/2023 What is your exercise level? Occasional Information not available 07/05/2023 Mental Status None recorded. Family History Relationship Description Onset Age of this Age Resolved Age Notes LastModified by Organization Details LastModified Time Mother Malignant tumor of breast [email or web address] Not available 2023 10:23:03 Medical History Condition Response Coronary Artery Disease N Other N Atrial Fibrillation N High Blood Pressure N Depression N COPD N Blood Clots N Anxiety Disorder N Muscle, Joint, or Bone Problems N Acid Reflux (GERD) N Cancer N Stroke N High Cholesterol N Liver Disease N Headaches N Kidney or Bladder Problems Y Thyroid Problems N GI Problems N Skin Problems N Anemia N Heart Attack ([place]) N Diabetes N Seizures/Epilepsy N Asthma N Allergies Y Hepatitis N Osteoporosis N Heart Failure N Gynecological History Statement/Question Response Flow Moderate Date of LMP 06/25/2024 Frequency of Cycle (Q days) 28 Menses Monthly Y Duration of Flow (days) 7 Current Control Method BCPs LMP Approximate Obstetrics History GPAL:G 4 P 4 0 0 4 Type Value Multiple Births 0 Full Term 4 Induced 0 Spontaneous 0 Premature 0 Living 4 Total 4 Past Encounters Encounter ID Performer Location Encounter Start Date Encounter Closed Date Diagnosis/Indication Diagnosis SNOMED-CT Code Diagnosis ICD10 Code Diagnosis Note [id number] Ziyad Bishop MD [facility] [employer] [address] [place] [address] 07/05/2023 10:06:01 07/05/2023 10:45:14 Cholesterol screening 796568656 Z13.220 fasting lipids due. Diabetes m ellitus screening 803657029 Z13.1 a1c screening due. Thyroid di sorder screening 931283636 Z13.29 annual thyroid panel ordered. Long-term drug therapy 604386756 Z79.899 routine cbc and cmp labs due. Generalize d anxiety disorder 72818424 F41.1 refill sertraline 50mg daily. very stable. continue dosing. please notify provider of any changes. [id number] Ziyad Bishop MD [facility] [employer] [address] [place] [address] 07/22/2024 10:55:34 07/22/2024 12:15:36 Right lower quadrant pain 512844090 R10.31 not currently present. -07/11 when it is present. Altered haydee wel function 06919411 R19.4 Patient had the RLQ start with soft stools over a months ago when she started a new supplement from functional medicine provider. she has not normalized since stopping the supplement . I have suggested she start probiotic and fiber tablet daily x 2 weeks. We can pursue diagnostic s if she does not start to normalize in formed stools. no other stools abnormalit y noted excet soft/mushy . Health Concerns Section Related Observation LastModified by Organization Detai ls LastModified Time None Recorded Concern Status LastModified by Organization Details LastModified Time None Recorded Advance Directives Directive N: Payers Encounter Date Sequence Insurance Name Policy Number Policy Case Covered Member ID Case Member ID Guarantor Name 07/05/2023 1 *SELF PAY* Bev Sandy Notes Date Note Type Note Provider Name and Address Organization Details Recorded Time 07/05/2023 text/html Anxiety/Depressi onR eported bypatient.Quality:s ymptoms improved Severity:denies suicidal ideations; able to maintain relationships; does not interfere with activities of daily living Duration:stablizing Context:no major life stressors Modifying Factors:medications as directed Associated Symptoms:denies homicidal ideations; no significant weight gain; no significant weight loss; mood good; appetite good; energy good; no apathy; maintaining functionality RAMON Mendoza Attn: [employer] [place], [address], [facility] 07/16/2023 18:24:46 07/22/2024 text/html Abdominal PainReported bypatient.Location: [facility] Quality:pain;dull Severity:mild Duration:intermitte nt Onset/Timing:gone now Context:IBS; food Modifying Factors:nothing gives relief; moving bowels Associated Symptoms:no fever; no chills; no blood in the urine; no heartburn; no shortness of breath Other:denies possible RAMON Mendoza Attn: Accounting[address] [place], [address], [facility] 07/22/2024 23:33:22 OBGyn Episode No OBEpisode recorded.
[2024-08-19 02:00] VITALS: PULSE 80
[2024-08-19 02:20] VITALS: O2SAT 100
[2024-08-19 02:20] LABS: Basophils Percent Auto 0.5 % (0.2-1.2); Eosinophils Absolute Auto 0.1 K/mm3 (0-0.3); Eosinophils Percent Auto 1.1 % (0-4.4); Hematocrit 41.5 % (37.0-47.0); Hemoglobin 13.3 g/dL (12.0-15.0); Immature Granulocyte Absolute 0.01 K/mm3 (0.00-0.031); Immature Granulocyte Percent A 0.2 % (0-0.5); Lymphocytes Absolute Auto 2.43 K/mm3 (0.9-3.2); Lymphocytes Percent Auto 38.1 % (18.3-44.2); Mean Corpuscular Hemoglobin 31.1 pg (26-34); Mean Corpuscular Volume 97.2 fl (80-100); Mean Platelet Volume 9.8 fl (7.4-10.4); Monocytes Absolute Auto 0.6 K/mm3 (0.1-0.6); Monocytes Percent Auto 9.1 % (2.6-8.5); Neutrophils Absolute Auto 3.3 K/mm3 (1.3-6.7); Platelet Count Result 186 k/mm3 (150-375); Red Blood Count 4.27 M/mm3 (4.2-5.4); White Blood Count 6.4 K/mm3 (4.5-10.0)
[2024-08-19 02:30] VITALS: BP 118/71; PULSE 76; RESP 18; TEMP 37.1; O2SAT 100
[2024-08-19 02:30] LABS: Alanine Aminotransferase 18 U/L (6-35); Albumin Level 4.7 g/dL (3.5-5.1); Alkaline Phosphatase 63 U/L (38-126); Anion Gap 9 mmol/L (4-12); Aspartate Amino Transferase 28 U/L (14-36); Bilirubin,Total 0.7 mg/dL (0.2-1.3); Blood Urea Nitrogen 12 mg/dL (7-17); Calcium 9.5 mg/dL (8.4-10.2); Carbon Dioxide 26 mmol/L (22-30); Chloride 104 mmol/L (98-107); Estimated CRCL calculation 91 ml/min; Estimated Glomerular Filt Rate > 60; Glucose 95 mg/dL (65-110); Potassium 3.5 mmol/L (3.4-5.0); Sodium 139 mmol/L (137-145)
--- OUTSIDE RECORDS SUMMARY | 2024-08-19 02:39 | XMS_ITS | Clinical Summary ---
Author Organization [facility] Address [address] [place] [address] Care Team Providers Care Junior Art Director Name Role Phone Daniel Matias MD Primary Care Provider [phone] Source Comments [facility],non-owned Affiliates and Associated Physician Practices is amultiple site organization consisting of ambulatory clinics and hospital sitesin [place], [place], [place] and [place]. This disclosure is being madepursuant to the Care Everywhere program and may not contain all information available regarding this patient. Last updated 17.[facility] Allergies No known active allergies Medications * Be aware that medications may not be up to date on this document. Alwaysverify current medications with the patient. Vit-Fe Fumarate-FA ( VITAMIN) 28-0.8 MG tablet Take 1 Tab by mouth once daily Active Immunizations Immunization Administration Dates Next Due Covid bulletn. primary monovalent 12+ yr 0.3mL Pur ple [...] on file Legal Sex Female 5:36 AM ONLINE MARKETING SPECIALIST Gender Identity Not on file Sexual Orientation Not on file Occupation Industry Job Start Date Job End Date employed Not on file Not on file Not on file Last Filed Vital Signs Vital Sign Reading Time Taken Comments Blood Pressure 102/60 04/18/2016 11:09 AM ONLINE MARKETING SPECIALIST Pulse 88 04/25/2015 8:05 AM ONLINE MARKETING SPECIALIST Temperature 36.9 C (98.4 F) 04/25/2015 8:05 AM ONLINE MARKETING SPECIALIST Respiratory Rate 18 04/25/2015 8:05 AM ONLINE MARKETING SPECIALIST Oxygen Saturation 100% 04/23/2015 8:15 PM ONLINE MARKETING SPECIALIST Inhaled Oxygen Concentration - - Weight 47.2 kg (104 lb) 04/18/2016 11:09 AM ONLINE MARKETING SPECIALIST Height 162.6 cm (5' 4 ) 04/18/2016 11:09 AM ONLINE MARKETING SPECIALIST Body Mass Index 17.85 04/18/2016 11:09 AM ONLINE MARKETING SPECIALIST Plan of Treatment Health Maintenance Due Date [...] age to complete this topic Insurance [employer] [facility] Advance Directives * Full Code (Latest Code Status on File) Date Activated Date Inactivated Comments 04/23/2015 6:12 AM 04/25/2015 2:31 PM Care Teams Junior Art Director Relationship Specialty Start Date End Date Daniel Matias MD [address] [place] [address] PCP - General 07/13/17
--- OUTSIDE RECORDS SUMMARY | 2024-08-19 02:39 | XMS_ITS | CONTINUITY OF CARE DOCUMENT ---
Author Name lico barfield Address Unknown Organization [facility] Address [address] [place] [address] Phone [phone] Care Team Providers Care Conference Reservationist Name Role Phone Matias GERBER, Joshua Unavailable [phone] YASH MAY Unavailable [phone] YASH MAY Unavailable PROBLEMS Condition Status Date [...] Payer name Policy type / Coverage type [place] [employer] party ID [facility] [id number] ADVANCE DIRECTIVES Name Date DISCUSSED - [...]
--- OUTSIDE RECORDS SUMMARY | 2024-08-19 02:39 | XMS_ITS | Clinical Summary ---
Author Organization [facility] Address [address] [place] [address] Phone Care Team Providers Care Fashion Consultant Name Role Phone Unavailable Primary Care Provider [...] Abstract 08/06/2024 2:15 PM CDT Ancillary Procedure [place] [address] [place] [address] Maliha Hedrick PA Abdominal pain, [...] Advance Directives For more information, please contact: [phone] * Full Code (Latest Code Status on File) Date Activated Date Inactivated Comments 12/06/2021 9:18 AM 12/07/2021 2:44 PM * Full Code Date Activated Date Inactivated Comments 12/06/2021 5:22 AM 12/06/2021 9:18 AM
[2024-08-19 02:43] LABS: Troponin I < 0.012 ng/mL (0.000-0.034)
[2024-08-19 03:00] LABS: D Dimer 0.29 ug/mL (<0.48)
--- NOTE | 2024-08-19 03:04 | ED_ITS ---
HPI - Arrhythmia/Palpitations General Chief Complaint: Arrhythmia/Palpitations Stated Complaint: palpitations Time Seen by Provider: 08/19/24 01:50 History of Present Illness HPI narrative: Patient started feeling palpitations today, does not usually at them. Feels like her heart is having extra beats. No chest pain. Related Data Home Medications Medication Instructions Recorded Confirmed Last Taken Type sertraline 50 mg tablet 50 mg PO DAILY 05/27/21 09/26/23 05/27/21 History multivitamin 1 tablet PO DAILY 07/26/23 09/26/23 Unknown History Allergies Allergy/AdvReac Type Severity Reaction Status Date / Time No Known Allergies Allergy Verified 09/26/23 09:13 Review of Systems 2 Review of Systems: All systems reviewed & are unremarkable except as noted in HPI and below PMFSH Past Medical History Medical History Surgery, elective episiotomy repair Surgical History Surgical History H/O breast augmentation Family History Family History Other Diabetes mellitus Hypertension Social History Social History (Updated 09/26/23 @ 09:14 by Rachel Moore CMA) Smoking status: Never smoker Alcohol intake: current Alcohol use details: 2/MONTH Substance use: never Substance use type: does not use Do You Feel Safe in your Home?: Yes Lack of Transportation: No Lack of Food: Never True Current Housing: I Have Housing Concerned About Future Housing: No Difficulty Paying Gas/Electric Bills: No Difficulty Paying for Meds: No Currently Unemployed: No Education: Bachelor's Degree Difficulty w/ Childcare or Family Care: No Living arrangements: with family Occupation/Education: occupation Gender identity (if verbalized by the patient): Female Sexual Orientation (if Verbalized by the Patient): Straight or Heterosexual Spiritual care concerns: No Exam 2 Narrative: EXAMINATION OF ORGAN SYSTEMS/BODY AREAS: Constitutional: Vital signs per nursing GENERAL:[No acute distress, non-toxic appearing.] HEAD: Normal with no signs of head trauma. EYES: EOMI, conjunctiva normal ENT: Hearing grossly intact LUNGS: Nonlabored breathing. HEART: [Regular rate and rhythm] ABD: [Soft], [nontender to palpation] EXT: Normal range of motion SKIN: [No rashes or lesions.] NEURO: [Alert and oriented x 3. No gross focal sensory or strength deficits.] PSYCH: Normal affect Course Vital Signs Vital signs: Vital Signs Temperature 98.1 F 08/19/24 01:21 Pulse Rate 96 08/19/24 01:21 Respiratory Rate 16 08/19/24 01:21 Blood Pressure 123/88 08/19/24 01:21 Pulse Oximetry 100 08/19/24 01:21 Oxygen Delivery Room Air 08/19/24 01:21 Temperature 98.1 F 08/19/24 01:21 Pulse Rate 96 08/19/24 01:21 Respiratory Rate 16 08/19/24 01:21 Blood Pressure 123/88 08/19/24 01:21 Pulse Oximetry 100 08/19/24 01:21 Oxygen Delivery Room Air 08/19/24 01:21 MDM - Arrhythmia/Palpitations MDM Narrative Medical decision making narrative: Patient presenting with palpitations, does have a history of anxiety, EKG on my independent interpretation shows sinus tachycardia rate 103, HI 150, QRS 81, QTC 450, normal axis, there are some T-wave inversions, especially in inferior and lateral leads While I was speaking with patient on telemetry there were multiple PVCs. Troponin is negative and shows D-dimer, lateral eyes are within acceptable limits. TSH normal Chest x-ray my independent interpretation does not show any obvious cardiomegaly or consolidations or pneumothorax This is discussed with the patient, she is resting comfortably in no distress, and is agreeable to outpatient management, given cardiology follow-up for possible Holter monitoring as needed.\return precautions given Lab Data 08/19/24 02:12 08/19/24 02:12 Labs: Lab Results 08/19/24 08/19/24 Range/Units 02:12 02:13 WBC 6.4 (4.5-10.0) K/mm3 RBC 4.27 (4.2-5.4) M/mm3 Hgb 13.3 (12.0-15.0) g/dL Hct 41.5 (37.0-47.0) % MCV 97.2 (80-100) fl MCH 31.1 (26-34) pg MCHC 32.0 (32-36) g/dl RDW 13.0 (11.5-14.5) % Plt Count 186 (150-375) k/mm3 MPV 9.8 (7.4-10.4) fl Immature Gran % (Auto) 0.2 (0-0.5) % Neut % (Auto) 51.0 (45.5-73.1) % Lymph % (Auto) 38.1 (18.3-44.2) % [place] % (Auto) 9.1 H (2.6-8.5) % Eos % (Auto) 1.1 (0-4.4) % Baso % (Auto) 0.5 (0.2-1.2) % Lymph # (Auto) 2.43 (0.9-3.2) K/mm3 [place] # (Auto) 0.6 (0.1-0.6) K/mm3 Eos # (Auto) 0.1 (0-0.3) K/mm3 Baso # (Auto) 0.0 (0.0-0.1) K/mm3 Abs Immat Gran (auto) 0.01 (0.00-0.031) K/mm3 Absolute Neuts (auto) 3.3 (1.3-6.7) K/mm3 Absolute Nucleated RBC 0.000 (0.0-0.012) K/mm3 Nucleated RBC % 0.0 (0.0-0.2) % D-Dimer 0.29 (<0.48) ug/mL Sodium 139 (137-145) mmol/L Potassium 3.5 (3.4-5.0) mmol/L Chloride 104 (98-107) mmol/L Carbon Dioxide 26 (22-30) mmol/L Anion Gap 9 (4-12) mmol/L BUN 12 (7-17) mg/dL Creatinine 0.64 L (0.7-1.0) mg/dL Estim Creat Clear Calc 91 ml/min Estimated GFR > 60 (59 - ) Glucose 95 (65-110) mg/dL Calcium 9.5 (8.4-10.2) mg/dL Total Bilirubin 0.7 (0.2-1.3) mg/dL AST 28 (14-36) U/L ALT 18 (6-35) U/L Alkaline Phosphatase 63 (38-126) U/L Troponin I < 0.012 (0.000-0.034) ng/mL Total Protein 7.0 (6.3-8.2) g/dL Albumin 4.7 (3.5-5.1) g/dL TSH (Reflex) 3.630 (0.465-4.68) uIU/mL Discharge Plan Discharge Clinical Impression: Palpitations Patient Disposition: Home Condition: Stable Instructions: Heart Palpitations (ED) Additional Instructions: Please follow-up with your primary care doctor or/bioinformatics programmer as you may benefit from a heart monitor to evaluate your heart rhythm. You can always return to the emergency room for any further issues. Patient Language: Welsh Prescriptions: No Action multivitamin Tablet 1 tablet PO DAILY sertraline 50 mg tablet 50 mg PO DAILY Follow-up/Referrals: Garland Calvin MD [Physician] - 2 Days Floridalma,DRAGAN Jett [Primary Care Provider] -
[2024-08-19 03:22] VITALS: BP 118/71; PULSE 76; RESP 16; TEMP 37.1; O2SAT 100
== END 2024-08-19 03:16 | disposition home or self-care (01) ==
PROVIDERS: Emergency Provider Emergency Medicine; PCP Physician Assistant
DX: R00.2 Palpitations (principal); R00.0 Tachycardia, unspecified; R94.31 Abnormal electrocardiogram [ECG] [EKG]
CPT/HCPCS: 36415; 71045; 80053; 84443; 84484; 85025; 85380; 93005; 99284